=== PATIENT | female | born 1985 | race Caucasian/White ===

== ENCOUNTER 2021-04-28 02:53 | Inpatient (IN) | payer BC ==
[~2021-04-28 02:53] MED LIST: Lidocaine 1.5% with EPINEPHrine 1:200,000 5 ML Amp ONE
[2021-04-28] MEDS ORDERED: Acetaminophen 325 MG Tab PO PRN ×2 (02:59→10:52)
[2021-04-28] MEDS ORDERED: Calcium Carbonate 500 MG Tab.Chew PO PRN (02:59)
[2021-04-28] MEDS ORDERED: Ondansetron 4 MG/2 ML SDV IVPUSH PRN (02:59)
[2021-04-28] MEDS ORDERED: Nalbuphine 10 MG/1 ML Vial IVPUSH PRN (02:59)
[2021-04-28] MEDS ORDERED: Lidocaine 1% 50 ML MDV INJECT PRN (02:59)
[2021-04-28] MEDS ORDERED: Oxytocin/Lactated Ringers 10 UNIT/1,000 ML BAG IV SCH ×2 (03:00)
[2021-04-28] MEDS: Lactated Ringers 1,000 ML IV SCH ×3 (04:18→09:29)
[2021-04-28] MEDS ORDERED: fentaNYL 100 MCG/2 ML SDV EPIDUR PRN ×2 (07:29→07:32)
[2021-04-28] MEDS ORDERED: ePHEDrine 50 MG/ML SDV IVPUSH PRN ×2 (07:29→07:32)
[2021-04-28] MEDS ORDERED: diphenhydrAMINE 50 MG/ML SDV IVPUSH PRN ×2 (07:29→07:32)
[2021-04-28] MEDS ORDERED: Bupivacaine/fentaNYL/NS 100 ML Bag EPIDUR PRN ×2 (07:29→07:32)
[2021-04-28] MEDS ORDERED: Sodium Chloride 0.9% 10 ML Syringe FLUSH SCH (09:00)
[2021-04-28] MEDS ORDERED: Benzocaine/Menthol 20%-0.5% Spray 78 GM Cannister TOP PRN (10:52)
[2021-04-28] MEDS ORDERED: Witch Hazel Medicated Pads 40/Jar TOP PRN (10:52)
[2021-04-28] MEDS ORDERED: Ibuprofen 600 MG Tab PO PRN (10:52)
[2021-04-28] MEDS ORDERED: Docusate Sodium 100 MG Cap PO PRN (10:52)
[2021-04-28] MEDS ORDERED: Enoxaparin 40 MG/0.4 ML Syringe SUBCUT SCH (21:00)
== END 2021-04-29 11:50 | disposition home or self-care (01) | DRG 560 ==
LOC: JD.OB 02:53 → OBSVTOIN 10:40 → JD.OB 10:41
PROVIDERS: ADMIT Obstetrics & Gynecology; ATTEND Obstetrics & Gynecology
PROC: 10E0XZZ Delivery of Products of Conception, External Approach (ICD-10-PCS; principal; 2021-04-28)
PROC: 3E0R3BZ Introduction of Anesthetic Agent into Spinal Canal, Percutaneous Approach (ICD-10-PCS; 2021-04-28)
PROC: 00HU33Z Insertion of Infusion Device into Spinal Canal, Percutaneous Approach (ICD-10-PCS; 2021-04-28)
DX: O99.02 Anemia complicating childbirth (principal); Z37.0 Single live birth; D64.9 Anemia, unspecified; Z86.718 Personal history of other venous thrombosis and embolism; Z20.822 Contact with and (suspected) exposure to COVID-19; Z3A.39 39 weeks gestation of pregnancy
CPT/HCPCS: 36415; 51702; 59025; 59409; 85025; 86592; 86850; 86900; 86901; A9270-GY; J1650; J2590; J3010; J7120; U0002